=== PATIENT | female | born 1925 | race Caucasian/White ===

== ENCOUNTER 2016-07-21 12:18 | Emergency (ER) | payer BC, MEDICARE ==
[2016-07-21 12:43] VITALS: BP 131/67
[2016-07-21] MEDS ORDERED: Morphine 2 MG/ML Syringe IVPUSH ONE (13:50)
[2016-07-21] MEDS ORDERED: Morphine 2 MG/ML Syringe ONE ×4 (13:54→15:58)
--- NOTE | 2016-07-21 20:03 | CR ---
DATE OF SERVICE: 07/21/2016 CLINICAL DATA: Fall. PELVIS AND RIGHT HIP There is diffuse osteopenia. There is an impacted intertrochanteric fracture on the right. No other acute abnormalities. IMPRESSION: Right hip fracture. [id number] [facility]
--- NOTE | 2016-07-22 02:31 | ER ---
CHIEF COMPLAINT: The patient enters the emergency room by ambulance after she had a fall at home. HISTORY OF PRESENT ILLNESS: The patient states that her knees buckled while at home, she fell, she lied on the floor for approximately 3 hours before she was found by family members. She could not bear weight to get up. She states that she has pain of her right hip. She states that she is aware of everything from when she fell, that she did not have any loss of consciousness, that she has no complaints of headache or neck pain at this time. PAST MEDICAL HISTORY: Significant for 1. LVH. 2. Hypertension. 3. Rheumatoid arthritis. MEDICATIONS: Current medicines include lisinopril 20 mg p.o. daily, prednisone 5 mg p.o. daily, methotrexate 2.5 mg 8 tablets per week, and folic acid 1 mg p.o. daily. SOCIAL HISTORY: The patient does not use alcohol or smoke. REVIEW OF SYSTEMS: The patient denies any fever, weight loss, or fatigue. No vision complaints. No nose congestion, sore throat, or ear pain. No chest pain or palpitations. No coughing or wheezing. No nausea, vomiting, diarrhea, constipation, or heartburn. No dysuria. She does have pain in her right hip after falling. She denies any complaints of skin rashes. She denies any complaints of headache, dizziness, weakness, or numbness except for discomfort in her right leg. She denies any history of depression. PHYSICAL EXAMINATION: GENERAL: Reveals a frail elderly female. She is alert and oriented and in no acute distress. VITAL SIGNS: Temperature is 98.7, blood pressure is 131/67, and pulse is 97 and regular. HEENT: Eyes show conjunctivae to be normal. EOMI. ENT shows nose to be clear. Throat is clear. TMs normal. NECK: Supple. No masses. No thyromegaly. No bruits. LYMPHATIC: Negative for adenopathy. LUNGS: Clear. HEART: Shows regular rate and rhythm. No murmurs, rubs, or gallops. No S3, no S4. ABDOMEN: Soft, nontender. No mass. No organomegaly. BACK: Shows no CVA or cord tenderness. SKIN: Shows no open wounds. No bruising. NEUROLOGIC: Cranial nerves 2 through 12 are intact. No focal deficits other than problems moving her right hip. PSYCHIATRIC: Memory seems to be intact. Her mood is appropriate. Judgment is fair. MUSCULOSKELETAL: She does have joint deformities consistent with rheumatoid arthritis in her hands, but there are no acute inflamed joints at this time. ASSESSMENT: 1. Right hip fracture. 2. History of hypertension with LVH. 3. Rheumatoid arthritis. PLAN: X-ray was performed, shows a right hip fracture. The patient will be transferred to [facility] to Dr. Ceballos and Dr. Amador, orthopedist; he will make sure the patient is stable and to repair as indicated. EKG was performed, it does show normal sinus rhythm with LVH, there is some ST strains in II, III, and F which appear to be new as well as in V5 and V6. CK was done, it was normal at 82. Troponins were normal. CBC was with slightly elevated white count at 16.3, hemoglobin and hematocrit of 11 and 33, and platelet count of 410. A BMP was done. Sodium was normal, potassium of 3.3. The rest of her electrolytes were normal. Her creatinine was 0.66. Total protein was 8.3. Liver enzymes were all normal. Patient with right hip fracture, was transferred to [facility] by ambulance for surgical repair. ADELAIDA/FANY /[id number]
== END 2016-07-21 16:00 ==
LOC: LB.ED 12:18
DX: S72.141A Displaced intertrochanteric fracture of right femur, initial encounter for closed fracture (principal); I10 Essential (primary) hypertension; M06.9 Rheumatoid arthritis, unspecified; W19.XXXA Unspecified fall, initial encounter; Y92.009 Unspecified place in unspecified non-institutional (private) residence as the place of occurrence of the external cause
CPT/HCPCS: 36415; 73502; 80053; 82550; 84484; 85025; 93005; 96374; 99284; 99285; A0425; A0429; J2270

== ENCOUNTER 2016-07-25 13:53 | Inpatient (IN) | payer MEDICARE, BC ==
[2016-07-25] MEDS ORDERED: METHOTREXATE 2.5 MG PO SCH (14:30)
[2016-07-25] MEDS ORDERED: Tuberculin, PPD 5 Units/0.1 ML 1 ML MDV IDERM ONE (14:39)
[2016-07-25] MEDS: Acetaminophen 325 MG Tab PO SCH ×2 (18:38→20:00)
--- NOTE | 2016-07-25 21:48 | PCM.HP ---
H&P History of Present Illness - General Date of Service: 07/25/16 Admit Problem/Dx: Admission Diagnosis/Problem Admission Diagnosis/Problem Pain management Source of Information: Patient History Limitations: Reports: No limitations - History of Present Illness Initial Comments - Free Text/Narative: Pt is a 89 year old female who had a fall at home on 07/22/15 and she sustained comminuted intertrochanteric fracture of right hip and was transferred down to [facility] for definitive care. Pt was seen by Dr.Moriatrty wise underwent ORIF of right hip on 07/22/16. Pt did have some intraoperative blood loss and has had blood transfusion. Her last hemoglobin on 07/24/16 was 9gm. Pt has been doing well with OT and PT and tolerating oral diet well. Hence patient has been transferred to [facility] for swing bed admission for rehabilitation post hip surgery. Pt claims she fells fine other than some soreness of the right hip. No fever, or chills. No dysuria or cough. Right Hip Pain Score (Numeric/FACES): 7 - Related Data Allergies/Adverse Reactions: Allergies Allergy/AdvReac Type Severity Reaction Status Date / Time No Known Allergies Allergy Verified 07/25/16 18:42 Home Medications: Home Meds Lisinopril [Lisinopril] 20 mg PO DAILY 07/21/16 [History] Methotrexate Sodium [Methotrexate] 6 tab PO WEEKLY 07/21/16 [History] Acetaminophen [Tylenol] 650 mg PO Q6H PRN 07/25/16 [History] Aspirin 81 mg PO DAILY 07/25/16 [History] Docusate Sodium/Sennosides [Senna Plus] 1 each PO BID 07/25/16 [History] Folic Acid [Folic Acid] 1 mg PO DAILY 07/25/16 [History] Past Medical History HEENT History: Reports: Cataract Cardiovascular History: Reports: Heart Failure, Hypertension, IA Gastrointestinal History: Reports: Hemorrhoids Musculoskeletal History: Reports: Arthritis, Fracture, RA Hematologic History: Reports: Anemia Oncologic (Cancer) History: Reports: Other (see below) Other Oncologic History: Skin Ca on forehead removed 2011 Dermatologic History: Reports: Other (see below) Other Dermatologic History: Herpes Simplex disciform keratitis - Infectious Disease History Infectious Disease History: Reports: Chicken pox - Past Surgical History HEENT Surgical History: Reports: Cataract surgery Cardiovascular Surgical History: Reports: Coronary artery stent GI Surgical History: Reports: Colonoscopy Musculoskeletal Surgical History: Reports: Hip replacement, Other (see below) Other Musculoskeletal Surgeries/Procedures:: Right ORIF Social & Family History - Family History Family Medical History: Noncontributory H&P Review of Systems - Review of Systems: Review Of Systems: See Below General: Denies: fever, chills, fatigue, night sweats, diaphoresis HEENT: Denies: headaches, rhinitis, post nasal drip Pulmonary: Denies: Shortness of Breath, Cough, Sputum Cardiovascular: Denies: chest pain, lightheadedness Gastrointestinal: Denies: Abdominal pain, Diarrhea, Nausea, Vomiting Genitourinary: Denies: dysuria, frequency, burning Musculoskeletal: Denies: leg pain, foot pain, joint swelling Skin: Denies: pruritis, rash Psychiatric: Denies: confusion, depression Neurological: Denies: Confusion, Headache, Numbness, Syncope, Tingling, Weakness Exam - Exam Exam: See Below - Vital Signs Vital Signs: Last Vital Signs Temp 98.2 F 07/25/16 17:30 Pulse 93 07/25/16 17:30 Resp 20 07/25/16 17:30 BP 154/82 H 07/25/16 17:30 Pulse Ox 100 07/25/16 17:30 Weight: 47.627 kg - Exam General: alert, oriented, 4 HEENT: PERRLA, Hearing intact, Mucosa moist & pink, Nares patent, Normal nasal septum, Posterior pharynx clear, Conjunctiva clear, EOMI, EACs clear, TMs clear Neck: supple, trachea midline, 2 Lungs: Clear to auscultation, Normal respiratory effort Cardiovascular: regular rate, regular rhythm Abdomen: normal bowel sounds, soft Extremities: normal inspection, other (Right hip: ther are dressing over lateral aspect of the hip, wound appear clean and dry.) *Q Meaningful Use (ADM) - VTE *Q VTE Criteria *Q: - Stroke *Q Stroke Criteria *Q: - AMI *Q AMI Criteria *Q: - Problem List (1) Status post right hip replacement SNOMED Code(s): 766915951, 391847963, 456477513 ICD Code: Z96.641 - PRESENCE OF RIGHT ARTIFICIAL HIP JOINT Status: Acute Current Visit: Yes Problem List Initiated/Reviewed/Updated: Yes Orders Last 24hrs: Active Orders 24 hr Category Date Time Status Patient Status [ADT] Routine ADT 07/25/16 14:40 Active Dietary Supplements [RC] TIDMEALS Care 07/25/16 14:42 Active OT Evaluation and Treatment [CONS] Routine Cons 07/25/16 14:40 Active PT Evaluation and Treatment [CONS] Routine Cons 07/25/16 14:40 Active Heart Healthy Diet [DIET] Diet 07/26/16 Breakfast Ordered CULTURE MRSA SURVEY [RM] Routine Lab 07/25/16 18:47 Ordered Acetaminophen [Tylenol] Med 07/25/16 14:30 Active 650 mg PO Q6H Acetaminophen/HYDROcodone [[place] 325-5 MG] Med 07/25/16 14:23 Active 1 - 2 tab PO Q6H PRN Aspirin [Halfprin] Med 07/26/16 08:00 Active 81 mg PO DAILY Docusate Sodium/Sennosides [Senna Plus] Med 07/25/16 20:00 Active 1 tab PO BID Enoxaparin [Lovenox] Med 07/26/16 08:00 Active 40 mg SUBCUT DAILY Folic Acid Med 07/26/16 08:00 Active 1 mg PO DAILY Lisinopril [Prinivil] Med 07/26/16 08:00 Active 20 mg PO DAILY Non-Formulary Medication [NF Drug] Med 07/27/16 08:00 Hold 6 each PO Rader@0800 traMADol [Ultram] Med 07/25/16 14:24 Active 25 mg PO Q6H PRN Resuscitation Status Routine Resus Stat 07/25/16 14:39 Ordered Medication Orders Acetaminophen (Tylenol) 650 mg PO Q6H [facility] Last Admin: 07/25/16 20:00 Dose: 650 mg Admin: 07/25/16 18:38 Dose: Not Given Hydrocodone Bitart/Acetaminophen ([place] 325-5 Mg) 1 - 2 tab PO Q6H PRN PRN Reason: MODERATE PAIN Aspirin (Halfprin) 81 mg PO DAILY [facility] Enoxaparin Sodium (Lovenox) 40 mg SUBCUT DAILY ANG[facility] Stop: 08/20/16 18:00 Folic Acid (Folic Acid) 1 mg PO DAILY [facility] Lisinopril (Prinivil) 20 mg PO DAILY [facility] Methotrexate 2.5mg (Tablets) 6 each PO Rader@0800 [facility] Senna/Docusate Sodium (Senna Plus) 1 tab PO BID [facility] Last Admin: 07/25/16 20:03 Dose: 1 tab Tramadol HCl (Ultram) 25 mg PO Q6H PRN PRN Reason: SEVERE PAIN Assessment/Plan Comment:: Ass: S?P right hip ORIF Plan: pt is clinically stable. Will continue her discharge medication as per the discharge summary from [place]. Will start OT and PT evaluation on Thursday. Her clinical exam is normal. Will monitor her vitals closely. Will repeat CBC on thursday as her baseline hemoglobin is 9.
[2016-07-26] MEDS: Acetaminophen/HYDROcodone 325-5 MG Tab PO PRN ×2 (00:49→17:39)
[2016-07-26] MEDS: Acetaminophen 325 MG Tab PO SCH ×4 (02:30→20:14)
[2016-07-26] MEDS ORDERED: Lisinopril 10 MG Tab PO SCH (08:00)
[2016-07-26] MEDS ORDERED: METHOTREXATE SODIUM 2.5 MG PO SCH (08:00)
[2016-07-26] MEDS: Aspirin 81 MG Tab.EC PO SCH (08:44)
[2016-07-26] MEDS: Folic Acid 1 MG Tab PO SCH (08:45)
[2016-07-26] MEDS: Lisinopril 20 MG Tab PO SCH (08:45)
[2016-07-26] MEDS: Enoxaparin 40 MG/0.4 ML Syringe SUBCUT SCH (08:49)
[2016-07-27] MEDS: Acetaminophen 325 MG Tab PO SCH ×4 (01:53→20:44)
[2016-07-27] MEDS ORDERED: METHOTREXATE 2.5 MG PO SCH (08:00)
[2016-07-27] MEDS: traMADol 50 MG Tab PO PRN (08:19)
[2016-07-27] MEDS: Folic Acid 1 MG Tab PO SCH (08:21)
[2016-07-27] MEDS: Enoxaparin 40 MG/0.4 ML Syringe SUBCUT SCH (08:21)
[2016-07-27] MEDS: Aspirin 81 MG Tab.EC PO SCH (08:22)
[2016-07-27] MEDS: Lisinopril 20 MG Tab PO SCH (08:22)
[2016-07-27] MEDS: Acetaminophen/HYDROcodone 325-5 MG Tab PO PRN (17:34)
[2016-07-28] MEDS: Acetaminophen 325 MG Tab PO SCH ×4 (03:07→20:05)
[2016-07-28] MEDS: Lisinopril 20 MG Tab PO SCH (08:20)
[2016-07-28] MEDS: Folic Acid 1 MG Tab PO SCH (08:20)
[2016-07-28] MEDS: Aspirin 81 MG Tab.EC PO SCH (08:20)
[2016-07-28] MEDS: Enoxaparin 40 MG/0.4 ML Syringe SUBCUT SCH (08:21)
[2016-07-28] MEDS: traMADol 50 MG Tab PO PRN (14:48)
[2016-07-29] MEDS: Acetaminophen 325 MG Tab PO SCH ×3 (01:59→13:52)
[2016-07-29] MEDS: Enoxaparin 40 MG/0.4 ML Syringe SUBCUT SCH (07:47)
[2016-07-29] MEDS: Aspirin 81 MG Tab.EC PO SCH (07:48)
[2016-07-29] MEDS: Lisinopril 20 MG Tab PO SCH (07:48)
[2016-07-29] MEDS: Folic Acid 1 MG Tab PO SCH (07:48)
--- NOTE | 2016-07-29 10:11 | PN ---
DATE OF VISIT: 07/29/2016 SUBJECTIVE: The patient is here for recovery from a right intertrochanteric fracture repair, should be receiving PT and OT. She has had some anemia, and has had a transfusion. Hemoglobin has been stable at 8.8. She has had some hypokalemia and that will be followed up in the morning with the BMP, so far the patient has been doing well. Pain is controlled. She is eating well. No issues voiced. OBJECTIVE: VITAL SIGNS: Blood pressure today is 144/94. She is 100% saturated on room air. She is afebrile at 36.6, respirations 16, and pulse of 106. SKIN: Dry. There is no break down. There is a small quarter-size blanching area of redness on her sacrum. Wound seems to be clean and dry per the nursing staff. HEART: Shows a regular rate and rhythm. No murmurs, rubs, or gallops. No S3, no S4. LUNGS: Clear. ABDOMEN: Soft and nontender. No mass. No organomegaly. EXTREMITIES: Show no clubbing, cyanosis, or edema. ASSESSMENT: 1. Status post right intertrochanteric fracture. 2. Rheumatoid arthritis. 3. Hypertension. 4. Anemia. 5. Hypokalemia. PLAN: The patient will continue PT/OT while on swing bed. We will continue to monitor her hemoglobin and her electrolytes, and transfuse as necessary or correct electrolytes if necessary. ADELAIDA/FANY /[id number]
[2016-07-29] MEDS: traMADol 50 MG Tab PO PRN ×2 (10:18→16:19)
[2016-07-29] MEDS: Acetaminophen/HYDROcodone 325-5 MG Tab PO PRN ×2 (13:04→19:42)
[2016-07-30] MEDS: Acetaminophen 325 MG Tab PO SCH ×4 (01:29→14:00)
[2016-07-30] MEDS: Lisinopril 20 MG Tab PO SCH (08:05)
[2016-07-30] MEDS: Enoxaparin 40 MG/0.4 ML Syringe SUBCUT SCH (08:06)
[2016-07-30] MEDS: Folic Acid 1 MG Tab PO SCH (08:06)
[2016-07-30] MEDS: Aspirin 81 MG Tab.EC PO SCH (08:06)
[2016-07-30] MEDS: Acetaminophen/HYDROcodone 325-5 MG Tab PO PRN (13:55)
[2016-07-31] MEDS: Acetaminophen 325 MG Tab PO SCH ×4 (06:14→20:00)
[2016-07-31] MEDS: Folic Acid 1 MG Tab PO SCH (07:57)
[2016-07-31] MEDS: Aspirin 81 MG Tab.EC PO SCH (07:57)
[2016-07-31] MEDS: Lisinopril 20 MG Tab PO SCH (07:58)
[2016-07-31] MEDS: Enoxaparin 40 MG/0.4 ML Syringe SUBCUT SCH (07:59)
[2016-08-01] MEDS: Acetaminophen 325 MG Tab PO SCH ×4 (04:00→21:26)
[2016-08-01] MEDS: Aspirin 81 MG Tab.EC PO SCH (08:25)
[2016-08-01] MEDS: Folic Acid 1 MG Tab PO SCH (08:25)
[2016-08-01] MEDS: Lisinopril 20 MG Tab PO SCH (08:25)
[2016-08-01] MEDS: Enoxaparin 40 MG/0.4 ML Syringe SUBCUT SCH (08:28)
[2016-08-02] MEDS: Acetaminophen 325 MG Tab PO SCH ×4 (03:30→19:16)
[2016-08-02] MEDS: Folic Acid 1 MG Tab PO SCH (07:50)
[2016-08-02] MEDS: Enoxaparin 40 MG/0.4 ML Syringe SUBCUT SCH (07:50)
[2016-08-02] MEDS: Aspirin 81 MG Tab.EC PO SCH (07:50)
[2016-08-02] MEDS: Lisinopril 20 MG Tab PO SCH (07:50)
[2016-08-03] MEDS: Acetaminophen 325 MG Tab PO SCH ×4 (07:12→22:59)
[2016-08-03] MEDS: Folic Acid 1 MG Tab PO SCH (08:03)
[2016-08-03] MEDS: Aspirin 81 MG Tab.EC PO SCH (08:03)
[2016-08-03] MEDS: Enoxaparin 40 MG/0.4 ML Syringe SUBCUT SCH (08:04)
[2016-08-03] MEDS: Lisinopril 20 MG Tab PO SCH (08:04)
[2016-08-04] MEDS: Acetaminophen 325 MG Tab PO SCH ×4 (07:37→19:56)
[2016-08-04] MEDS: Folic Acid 1 MG Tab PO SCH (07:38)
[2016-08-04] MEDS: Aspirin 81 MG Tab.EC PO SCH (07:38)
[2016-08-04] MEDS: Enoxaparin 40 MG/0.4 ML Syringe SUBCUT SCH (07:39)
[2016-08-04] MEDS: Lisinopril 20 MG Tab PO SCH (07:39)
[2016-08-05] MEDS: Acetaminophen 325 MG Tab PO SCH ×4 (02:00→20:00)
[2016-08-05] MEDS: Aspirin 81 MG Tab.EC PO SCH (07:53)
[2016-08-05] MEDS: Folic Acid 1 MG Tab PO SCH (07:53)
[2016-08-05] MEDS: Lisinopril 20 MG Tab PO SCH (07:53)
[2016-08-05] MEDS: Enoxaparin 40 MG/0.4 ML Syringe SUBCUT SCH (07:53)
[2016-08-05] MEDS: Acetaminophen/HYDROcodone 325-5 MG Tab PO PRN (20:51)
[2016-08-06] MEDS: Acetaminophen 325 MG Tab PO SCH ×5 (02:07→20:32)
[2016-08-06] MEDS: Folic Acid 1 MG Tab PO SCH (08:12)
[2016-08-06] MEDS: Lisinopril 20 MG Tab PO SCH (08:12)
[2016-08-06] MEDS: Aspirin 81 MG Tab.EC PO SCH (08:12)
[2016-08-06] MEDS: Enoxaparin 40 MG/0.4 ML Syringe SUBCUT SCH (08:12)
[2016-08-07] MEDS: Acetaminophen/HYDROcodone 325-5 MG Tab PO PRN ×2 (02:34→08:15)
[2016-08-07] MEDS: Folic Acid 1 MG Tab PO SCH (08:10)
[2016-08-07] MEDS: Aspirin 81 MG Tab.EC PO SCH (08:11)
[2016-08-07] MEDS: Lisinopril 20 MG Tab PO SCH (08:11)
[2016-08-07] MEDS: Acetaminophen 325 MG Tab PO SCH ×4 (08:12→20:20)
[2016-08-07] MEDS: Enoxaparin 40 MG/0.4 ML Syringe SUBCUT SCH (08:12)
[2016-08-08] MEDS: Folic Acid 1 MG Tab PO SCH (07:39)
[2016-08-08] MEDS: Aspirin 81 MG Tab.EC PO SCH (07:39)
[2016-08-08] MEDS: Acetaminophen 325 MG Tab PO SCH ×3 (07:40→17:00)
[2016-08-08] MEDS: Lisinopril 20 MG Tab PO SCH (07:40)
[2016-08-08] MEDS: Enoxaparin 40 MG/0.4 ML Syringe SUBCUT SCH (07:42)
[2016-08-08] MEDS: Acetaminophen/HYDROcodone 325-5 MG Tab PO PRN (12:20)
--- NOTE | 2016-08-08 13:08 | PN ---
DATE OF VISIT: 08/07/2016 SUBJECTIVE: Zohra is here to rehab after hip surgery due to fracture. She is progressing quite well. She has no complaints. OBJECTIVE: VITAL SIGNS: Stable. Today her temperature is 35.7, blood pressure 163/70, pulse of 86, 100% saturated on room air. GENERAL: A well-developed, well-nourished female. She is alert, she is oriented x3. She is in no acute distress while sitting. SKIN: Warm and dry. HEART: Shows a regular rate and rhythm. No murmur, rubs, or gallops. No S3, no S4. LUNGS: Clear. ABDOMEN: Soft, nontender. No mass. No organomegaly. EXTREMITIES: Show no clubbing, cyanosis, or edema, however, she does have compression hose in place. PLAN: The patient will continue her rehab and from her hip fracture, continue to see the patient on a weekly basis. No change in therapy at this time. ADELAIDA/FANY /[id number]
[2016-08-09] MEDS: Acetaminophen 325 MG Tab PO SCH ×5 (01:40→19:46)
[2016-08-09] MEDS: Acetaminophen/HYDROcodone 325-5 MG Tab PO PRN ×2 (02:17→20:46)
[2016-08-09] MEDS: Aspirin 81 MG Tab.EC PO SCH (07:37)
[2016-08-09] MEDS: Lisinopril 20 MG Tab PO SCH (07:38)
[2016-08-09] MEDS: Folic Acid 1 MG Tab PO SCH (07:38)
[2016-08-09] MEDS: Enoxaparin 40 MG/0.4 ML Syringe SUBCUT SCH (07:39)
[2016-08-10] MEDS: Aspirin 81 MG Tab.EC PO SCH (07:54)
[2016-08-10] MEDS: Acetaminophen 325 MG Tab PO SCH ×4 (07:55→19:24)
[2016-08-10] MEDS: Lisinopril 20 MG Tab PO SCH (07:56)
[2016-08-10] MEDS: Folic Acid 1 MG Tab PO SCH (07:57)
[2016-08-10] MEDS: Enoxaparin 40 MG/0.4 ML Syringe SUBCUT SCH (07:57)
[2016-08-10] MEDS: Acetaminophen/HYDROcodone 325-5 MG Tab PO PRN (19:23)
[2016-08-11] MEDS: Acetaminophen 325 MG Tab PO SCH ×4 (07:48→21:22)
[2016-08-11] MEDS: Enoxaparin 40 MG/0.4 ML Syringe SUBCUT SCH (07:48)
[2016-08-11] MEDS: Folic Acid 1 MG Tab PO SCH (07:52)
[2016-08-11] MEDS: Aspirin 81 MG Tab.EC PO SCH (07:52)
[2016-08-11] MEDS: Lisinopril 20 MG Tab PO SCH (07:53)
[2016-08-11] MEDS: Acetaminophen/HYDROcodone 325-5 MG Tab PO PRN (21:26)
[2016-08-12] MEDS ORDERED: Tuberculin, PPD 5 Units/0.1 ML 1 ML MDV IDERM SCH (08:00)
[2016-08-12] MEDS: Folic Acid 1 MG Tab PO SCH (08:22)
[2016-08-12] MEDS: Acetaminophen 325 MG Tab PO SCH ×4 (08:22→20:20)
[2016-08-12] MEDS: Lisinopril 20 MG Tab PO SCH (08:23)
[2016-08-12] MEDS: Aspirin 81 MG Tab.EC PO SCH (08:23)
[2016-08-12] MEDS: Enoxaparin 40 MG/0.4 ML Syringe SUBCUT SCH (08:23)
[2016-08-13] MEDS: Folic Acid 1 MG Tab PO SCH (07:58)
[2016-08-13] MEDS: Acetaminophen 325 MG Tab PO SCH ×4 (07:58→20:37)
[2016-08-13] MEDS: Aspirin 81 MG Tab.EC PO SCH (07:59)
[2016-08-13] MEDS: Lisinopril 20 MG Tab PO SCH (07:59)
[2016-08-13] MEDS: Enoxaparin 40 MG/0.4 ML Syringe SUBCUT SCH (07:59)
[2016-08-14] MEDS: traMADol 50 MG Tab PO PRN ×2 (00:30→23:55)
[2016-08-14] MEDS: Enoxaparin 40 MG/0.4 ML Syringe SUBCUT SCH (08:00)
[2016-08-14] MEDS: Folic Acid 1 MG Tab PO SCH (08:03)
[2016-08-14] MEDS: Acetaminophen 325 MG Tab PO SCH ×4 (08:04→20:00)
[2016-08-14] MEDS: Aspirin 81 MG Tab.EC PO SCH (08:04)
[2016-08-14] MEDS: Lisinopril 20 MG Tab PO SCH (08:46)
[2016-08-15] MEDS: Acetaminophen 325 MG Tab PO SCH ×4 (07:37→20:37)
[2016-08-15] MEDS: Folic Acid 1 MG Tab PO SCH (07:39)
[2016-08-15] MEDS: Aspirin 81 MG Tab.EC PO SCH (07:39)
[2016-08-15] MEDS: Lisinopril 20 MG Tab PO SCH (07:40)
[2016-08-15] MEDS: Enoxaparin 40 MG/0.4 ML Syringe SUBCUT SCH (07:41)
[2016-08-15] MEDS: Acetaminophen/HYDROcodone 325-5 MG Tab PO PRN (12:05)
[2016-08-16] MEDS: Acetaminophen 325 MG Tab PO SCH ×4 (08:23→19:28)
[2016-08-16] MEDS: Aspirin 81 MG Tab.EC PO SCH (08:25)
[2016-08-16] MEDS: Folic Acid 1 MG Tab PO SCH (08:25)
[2016-08-16] MEDS: Lisinopril 20 MG Tab PO SCH (08:26)
[2016-08-16] MEDS: Enoxaparin 40 MG/0.4 ML Syringe SUBCUT SCH (08:35)
--- NOTE | 2016-08-16 18:35 | PCM.PN ---
- General Info Date of Service: 08/15/16 Subjective Update: Pt has been doing well. Has been able to weight bear and walk with minimal pain and discomfort. has been working with OT and PT. Feeding well. No compalints form patinet. No drainage or bleeding from the surgical site. Functional Status: Reports: pain controlled, tolerating diet, ambulating, urinating - Review of Systems General: Denies: Fever, Weakness, Fatigue HEENT: Denies: sinus congestion, sore throat Pulmonary: Denies: shortness of breath, hemoptysis, wheezing Cardiovascular: Denies: Chest Pain, Lightheadedness Gastrointestinal: Denies: Abdominal pain, Constipation, Nausea, Vomiting Genitourinary: Denies: frequency, burning Musculoskeletal: Denies: joint pain, joint swelling Skin: Denies: pruritis, rash Neurological: Denies: Confusion, Dizziness, Headache - Patient Data Vitals - most recent: Last Vital Signs Temp 98.7 F 08/16/16 08:00 Pulse 91 08/16/16 08:00 Resp 16 08/16/16 08:00 BP 121/68 08/16/16 08:26 Pulse Ox 100 08/16/16 08:00 Weight - most recent: 41.73 kg Med Orders - Current: Current Medications Acetaminophen (Tylenol) 650 mg PO QID [facility] Last Admin: 08/16/16 16:54 Dose: 650 mg Hydrocodone Bitart/Acetaminophen ([place] 325-5 Mg) 1 - 2 tab PO Q6H PRN PRN Reason: MODERATE PAIN Last Admin: 08/15/16 12:05 Dose: 1 tab Aspirin (Halfprin) 81 mg PO DAILY [facility] Last Admin: 08/16/16 08:25 Dose: 81 mg Enoxaparin Sodium (Lovenox) 40 mg SUBCUT DAILY [facility] Stop: 08/20/16 18:00 Last Admin: 08/16/16 08:35 Dose: 40 mg Folic Acid (Folic Acid) 1 mg PO DAILY [facility] Last Admin: 08/16/16 08:25 Dose: 1 mg Lisinopril (Prinivil) 20 mg PO DAILY [facility] Last Admin: 08/16/16 08:26 Dose: 20 mg Methotrexate 2.5mg (Tablets) 6 each PO Rader@0800 [facility] Senna/Docusate Sodium (Senna Plus) 1 tab PO BID [facility] Last Admin: 08/16/16 08:25 Dose: 1 tab Tramadol HCl (Ultram) 25 mg PO Q6H PRN PRN Reason: SEVERE PAIN Last Admin: 08/14/16 23:55 Dose: 25 mg Discontinued Medications Acetaminophen (Tylenol) 650 mg PO Q6H [facility] Last Admin: 07/26/16 08:46 Dose: 650 mg Acetaminophen (Tylenol) 650 mg PO 0200,0800,1400,2000 [facility] Last Admin: 08/06/16 08:14 Dose: 650 mg Methotrexate 2.5mg (Tablets) 6 each PO .WEEKLY [facility] Tuberculin PPD (Aplisol) 5 unit IDERM ONETIME ONE Stop: 07/25/16 14:40 Last Admin: 07/27/16 14:35 Dose: 5 unit Tuberculin PPD (Aplisol) 5 unit IDERM DAILY [facility] Stop: 08/12/16 18:00 Last Admin: 08/12/16 16:34 Dose: 5 unit - Exam General: alert, oriented HEENT: Pupils equal, Pupils reactive, EOMI, Mucous membr. moist/pink Neck: supple Lungs: Clear to auscultation Cardiovascular: Regular Rate, Regular Rhythm Abdomen: bowel sounds present, soft, no tenderness, no distension Extremities: normal pulses, no tenderness/swelling, other (the wound site over the right thigh has healed well ) - Problem List & Annotations (1) Status post right hip replacement SNOMED Code(s): 540920099, 169847664, [id number] Code(s): Z96.641 - PRESENCE OF RIGHT ARTIFICIAL HIP JOINT Status: Acute Current Visit: Yes - Problem List Review Problem List Initiated/Reviewed/Updated: Yes - Plan Plan:: Ass: S/P right hip ORIF Plan: the wound over right thigh has healed well. Pt is progressing well with therapy. When OT and PT clears patient will plan on discharge.
[2016-08-16] MEDS: traMADol 50 MG Tab PO PRN (19:35)
[2016-08-17] MEDS: Acetaminophen 325 MG Tab PO SCH ×3 (08:12→18:48)
[2016-08-17] MEDS: Folic Acid 1 MG Tab PO SCH (08:16)
[2016-08-17] MEDS: Aspirin 81 MG Tab.EC PO SCH (08:16)
[2016-08-17] MEDS: Enoxaparin 40 MG/0.4 ML Syringe SUBCUT SCH (08:17)
[2016-08-17] MEDS: Lisinopril 20 MG Tab PO SCH (08:19)
[2016-08-17] MEDS: traMADol 50 MG Tab PO PRN ×2 (08:27→19:35)
[2016-08-17] MEDS ORDERED: Acetaminophen 325 MG Tab PO ONE (12:00)
[2016-08-17] MEDS: Acetaminophen/HYDROcodone 325-5 MG Tab PO PRN ×2 (12:05→19:37)
[2016-08-18] MEDS: Lisinopril 20 MG Tab PO SCH (07:14)
[2016-08-18] MEDS: Aspirin 81 MG Tab.EC PO SCH (07:15)
[2016-08-18] MEDS: Acetaminophen 325 MG Tab PO SCH ×5 (07:16→22:34)
[2016-08-18] MEDS: Folic Acid 1 MG Tab PO SCH (07:17)
[2016-08-18] MEDS: Enoxaparin 40 MG/0.4 ML Syringe SUBCUT SCH (07:17)
[2016-08-18] MEDS: traMADol 50 MG Tab PO PRN (08:23)
[2016-08-18] MEDS ORDERED: Tuberculin, PPD 5 Units/0.1 ML 1 ML MDV IDERM ONE (14:04)
[2016-08-19] MEDS: traMADol 50 MG Tab PO PRN ×2 (00:03→18:31)
[2016-08-19] MEDS: Acetaminophen/HYDROcodone 325-5 MG Tab PO PRN (04:14)
[2016-08-19] MEDS: Acetaminophen 325 MG Tab PO SCH ×4 (07:50→23:35)
[2016-08-19] MEDS: Lisinopril 20 MG Tab PO SCH (07:51)
[2016-08-19] MEDS: Aspirin 81 MG Tab.EC PO SCH (07:51)
[2016-08-19] MEDS: Folic Acid 1 MG Tab PO SCH (07:51)
[2016-08-19] MEDS: Enoxaparin 40 MG/0.4 ML Syringe SUBCUT SCH (07:52)
[2016-08-20] MEDS: Acetaminophen 325 MG Tab PO SCH ×4 (07:30→19:31)
[2016-08-20] MEDS: Lisinopril 20 MG Tab PO SCH (07:31)
[2016-08-20] MEDS: Aspirin 81 MG Tab.EC PO SCH (07:31)
[2016-08-20] MEDS: Folic Acid 1 MG Tab PO SCH (07:31)
[2016-08-20] MEDS: Enoxaparin 40 MG/0.4 ML Syringe SUBCUT SCH ×2 (07:42→08:32)
[2016-08-20] MEDS ORDERED: Tuberculin, PPD 5 Units/0.1 ML 1 ML MDV IDERM ONE (18:17)
[2016-08-20] MEDS: Acetaminophen/HYDROcodone 325-5 MG Tab PO PRN (22:37)
[2016-08-21] MEDS: Acetaminophen 325 MG Tab PO SCH ×4 (07:38→19:04)
[2016-08-21] MEDS: Folic Acid 1 MG Tab PO SCH (07:38)
[2016-08-21] MEDS: Aspirin 81 MG Tab.EC PO SCH (07:38)
[2016-08-21] MEDS: Lisinopril 20 MG Tab PO SCH (07:42)
[2016-08-21] MEDS: traMADol 50 MG Tab PO PRN (19:03)
[2016-08-22] MEDS: traMADol 50 MG Tab PO PRN (06:32)
[2016-08-22] MEDS: Folic Acid 1 MG Tab PO SCH (07:30)
[2016-08-22] MEDS: Aspirin 81 MG Tab.EC PO SCH (07:30)
[2016-08-22] MEDS: Lisinopril 20 MG Tab PO SCH (07:31)
[2016-08-22] MEDS: Acetaminophen 325 MG Tab PO SCH ×4 (07:33→20:14)
[2016-08-23] MEDS: Folic Acid 1 MG Tab PO SCH (08:34)
[2016-08-23] MEDS: Aspirin 81 MG Tab.EC PO SCH (08:34)
[2016-08-23] MEDS: Lisinopril 20 MG Tab PO SCH (08:34)
[2016-08-23] MEDS: Acetaminophen 325 MG Tab PO SCH ×2 (08:35→14:15)
[2016-08-23] MEDS: traMADol 50 MG Tab PO PRN (10:02)
[2016-08-24] MEDS: Acetaminophen 325 MG Tab PO SCH ×6 (05:12→20:00)
[2016-08-24] MEDS: Folic Acid 1 MG Tab PO SCH (08:45)
[2016-08-24] MEDS: Aspirin 81 MG Tab.EC PO SCH (08:45)
[2016-08-24] MEDS: Lisinopril 20 MG Tab PO SCH (09:04)
[2016-08-24] MEDS: METHOTREXATE 2.5 MG PO SCH (13:45)
[2016-08-24] MEDS: traMADol 50 MG Tab PO PRN (19:32)
[2016-08-25] MEDS: Aspirin 81 MG Tab.EC PO SCH (09:05)
[2016-08-25] MEDS: Folic Acid 1 MG Tab PO SCH (09:05)
[2016-08-25] MEDS: Lisinopril 20 MG Tab PO SCH (09:05)
[2016-08-25] MEDS: traMADol 50 MG Tab PO PRN ×2 (09:06→19:38)
[2016-08-25] MEDS: Acetaminophen 325 MG Tab PO SCH ×3 (09:06→19:39)
[2016-08-26] MEDS: Acetaminophen 325 MG Tab PO SCH ×5 (08:45→19:51)
[2016-08-26] MEDS: Folic Acid 1 MG Tab PO SCH (08:46)
[2016-08-26] MEDS: Aspirin 81 MG Tab.EC PO SCH (08:46)
[2016-08-26] MEDS: traMADol 50 MG Tab PO PRN (09:29)
--- NOTE | 2016-08-26 10:19 | PCM.PN ---
- General Info Date of Service: 08/26/16 Subjective Update: Patient has been doing well. Patient states she has been a little nauseated from eating too much breakfast. Denies any pain but states she does have discomfort from sitting a lot - she is on a gel seat and checked yesterday for decubitus ulceration or irritation - there was none. Patient feels she is doing well otherwise and does not have any other complaints. - Review of Systems General: Reports: Weakness HEENT: Reports: no symptoms Pulmonary: Reports: no symptoms Cardiovascular: Reports: No Symptoms Gastrointestinal: Reports: Nausea Genitourinary: Reports: no symptoms Musculoskeletal: Reports: joint pain Skin: Reports: no symptoms Neurological: Reports: Weakness Psychiatric: Reports: no symptoms - Patient Data Vitals - most recent: Last Vital Signs Temp 36.2 C 08/26/16 10:00 Pulse 84 08/26/16 10:00 Resp 16 08/26/16 10:00 BP 105/58 L 08/26/16 10:00 Pulse Ox 100 08/26/16 10:00 Weight - most recent: 41.005 kg Lab Results last 24 hrs: Laboratory Results - last 24 hr 08/26/16 Range/Units 08:30 Sodium 134 L (136-145) mmol/L Potassium 4.5 (3.5-5.1) mmol/L Chloride 102 (98-107) mmol/L Carbon Dioxide 22.1 (21.0-32.0) mmol/L Anion Gap 14.4 (5.0-15.0) mmol/L BUN 32 H D (8-26) mg/dL Creatinine 0.78 (0.55-1.02) mg/dL Est Cr Clr Drug Dosing 31.65 mL/min Estimated GFR (MDRD) > 60 (>60) MLS/MIN BUN/Creatinine Ratio 41.0 H (6-25) Glucose 110 H (74-100) mg/dL Calcium 9.2 (8.5-10.1) mg/dL Med Orders - Current: Current Medications Acetaminophen (Tylenol) 650 mg PO QID [facility] Last Admin: 08/26/16 08:45 Dose: 325 mg Hydrocodone Bitart/Acetaminophen ([place] 325-5 Mg) 1 - 2 tab PO Q6H PRN PRN Reason: MODERATE PAIN Last Admin: 08/20/16 22:37 Dose: 2 tab Aspirin (Halfprin) 81 mg PO DAILY [facility] Last Admin: 08/26/16 08:46 Dose: 81 mg Folic Acid (Folic Acid) 1 mg PO DAILY [facility] Last Admin: 08/26/16 08:46 Dose: 1 mg Methotrexate 2.5mg (Tablets) 6 each PO Rader@0800 [facility] Last Admin: 08/24/16 13:45 Dose: 6 each Senna/Docusate Sodium (Senna Plus) 1 tab PO BID [facility] Last Admin: 08/26/16 08:51 Dose: Not Given Tramadol HCl (Ultram) 50 mg PO Q6H PRN PRN Reason: SEVERE PAIN Last Admin: 08/26/16 09:29 Dose: 50 mg Discontinued Medications Acetaminophen (Tylenol) 650 mg PO Q6H [facility] Last Admin: 07/26/16 08:46 Dose: 650 mg Acetaminophen (Tylenol) 650 mg PO 0200,0800,1400,2000 [facility] Last Admin: 08/06/16 08:14 Dose: 650 mg Acetaminophen (Tylenol) 325 mg PO NOW ONE Stop: 08/17/16 12:01 Last Admin: 08/17/16 12:10 Dose: 325 mg Enoxaparin Sodium (Lovenox) 40 mg SUBCUT DAILY [facility] Stop: 08/20/16 18:00 Last Admin: 08/20/16 08:32 Dose: 40 mg Lisinopril (Prinivil) 20 mg PO DAILY [facility] Last Admin: 08/25/16 09:05 Dose: 20 mg Methotrexate 2.5mg (Tablets) 6 each PO .WEEKLY [facility] Methotrexate 2.5mg (Tablets) 6 each PO Rader@0800 [facility] Tramadol HCl (Ultram) 25 mg PO Q6H PRN PRN Reason: SEVERE PAIN Last Admin: 08/19/16 18:31 Dose: 25 mg Tuberculin PPD (Aplisol) 5 unit IDERM ONETIME ONE Stop: 07/25/16 14:40 Last Admin: 07/27/16 14:35 Dose: 5 unit Tuberculin PPD (Aplisol) 5 unit IDERM DAILY [facility] Stop: 08/12/16 18:00 Last Admin: 08/12/16 16:34 Dose: 5 unit Tuberculin PPD (Aplisol) 5 unit IDERM ONETIME ONE Stop: 08/18/16 14:05 Last Admin: 08/19/16 10:36 Dose: Not Given Tuberculin PPD (Aplisol) 5 unit IDERM ONETIME ONE Stop: 08/20/16 18:18 Last Admin: 08/21/16 12:51 Dose: 5 unit - Exam General: alert, cooperative HEENT: Pupils equal, Pupils reactive, EOMI Neck: supple Lungs: Clear to auscultation, Normal respiratory effort Cardiovascular: Regular Rate, Regular Rhythm Abdomen: bowel sounds present, soft, no tenderness Back Exam: Normal Inspection Extremities: no edema Peripheral Pulses: 2+: Dorsalis Pedis (L), Dorsalis Pedis (R) Skin: warm, dry, intact Neurological: no new focal deficit Psy/Mental Status: alert, normal affect, normal mood - Problem List Review Problem List Initiated/Reviewed/Updated: Yes - Plan Plan:: Ass: S/P right hip ORIF Plan: the wound over right thigh has healed well. Pt is progressing well with therapy. When OT and PT clears patient will plan on discharge. 08/26/16 Patient continues to improve and do well. We will continue PT/OT until clearance. Discussed close monitoring of buttocks as patient did complain of soreness the past few days. Buttocks checked yesterday and no redness or sores. Patient has some complaints of nausea today - we will monitor and workup as needed.
[2016-08-26] MEDS: Lisinopril 20 MG Tab PO SCH (10:48)
[2016-08-27] MEDS: traMADol 50 MG Tab PO PRN ×2 (06:31→16:45)
[2016-08-27] MEDS: Folic Acid 1 MG Tab PO SCH (08:14)
[2016-08-27] MEDS: Aspirin 81 MG Tab.EC PO SCH (08:14)
[2016-08-27] MEDS: Acetaminophen 325 MG Tab PO SCH ×4 (08:15→19:30)
[2016-08-28] MEDS: traMADol 50 MG Tab PO PRN ×2 (04:37→19:48)
[2016-08-28] MEDS: Aspirin 81 MG Tab.EC PO SCH (08:17)
[2016-08-28] MEDS: Acetaminophen 325 MG Tab PO SCH ×4 (08:17→20:10)
[2016-08-28] MEDS: Folic Acid 1 MG Tab PO SCH (08:17)
[2016-08-28] MEDS ORDERED: Acetaminophen 325 MG Tab PO PRN (23:51)
[2016-08-29] MEDS: traMADol 50 MG Tab PO PRN ×2 (04:33→10:28)
[2016-08-29] MEDS: Aspirin 81 MG Tab.EC PO SCH (07:14)
[2016-08-29] MEDS: Folic Acid 1 MG Tab PO SCH (07:14)
[2016-08-29] MEDS: Acetaminophen/HYDROcodone 325-5 MG Tab PO PRN ×3 (07:22→22:33)
[2016-08-30] MEDS: Acetaminophen/HYDROcodone 325-5 MG Tab PO PRN ×4 (05:39→19:49)
[2016-08-30] MEDS: Aspirin 81 MG Tab.EC PO SCH (07:32)
[2016-08-30] MEDS: Folic Acid 1 MG Tab PO SCH (07:32)
[2016-08-31] MEDS: Acetaminophen/HYDROcodone 325-5 MG Tab PO PRN ×3 (02:14→23:24)
[2016-08-31] MEDS: Folic Acid 1 MG Tab PO SCH (07:44)
[2016-08-31] MEDS: Aspirin 81 MG Tab.EC PO SCH (07:44)
[2016-08-31] MEDS: METHOTREXATE 2.5 MG PO SCH (07:49)
[2016-08-31] MEDS ORDERED: Bisacodyl 10 MG Supp RECTAL ONE (11:07)
[2016-08-31] MEDS: traMADol 50 MG Tab PO PRN (14:24)
[2016-09-01] MEDS: Folic Acid 1 MG Tab PO SCH (07:45)
[2016-09-01] MEDS: Aspirin 81 MG Tab.EC PO SCH (07:45)
[2016-09-01] MEDS: traMADol 50 MG Tab PO PRN ×2 (07:50→19:04)
[2016-09-02] MEDS: Folic Acid 1 MG Tab PO SCH (08:15)
[2016-09-02] MEDS: Aspirin 81 MG Tab.EC PO SCH (08:15)
[2016-09-02] MEDS: traMADol 50 MG Tab PO PRN (08:15)
[2016-09-02 08:30] VITALS: BP 147/61
--- NOTE | 2016-09-02 11:08 | PCM.DCSUM1 ---
Discharge Summary - Hospital Course Free Text/Narrative:: Pt was admitted post ORIF of the right hip Done by Dr. Gibson on 08/21/16 for OT and PT rehabilitation. PT has attained maximum level of functioning at this point. Able to walk with walker with stable balance. Pt and her family have decided to place her in Care center. Hence patient has been transferred to [facility] today. Pt has not pain in the hip. Wound over the rigth lateral hip has healed well. Tolerating diet well. Will be transferred on her routine home meds. Brief History: Pt is a pleasant 89 year female who sustained right hip intertrochanteric fracture on 07/21/16 and had ORIF done by Dr. Gibson at [facility]. She was transferred to [facility] for Rehab at [facility] [place] [facility] care. - Discharge Data Discharge Date: 09/02/16 Discharge Disposition: DC/Tfer to [facility] Condition: Good - Discharge Diagnosis/Problem(s) (1) Status post right hip replacement SNOMED Code(s): 748270533, 378422607, [id number] ICD Code: Z96.641 - PRESENCE OF RIGHT ARTIFICIAL HIP JOINT Status: Acute Current Visit: Yes - Patient Summary/Data Consults: Consultations 07/25/16 14:40 OT Evaluation and Treatment [CONS] Routine Please Evaluate and Treat. OT Reason for Consult: ADL's This query below is only for informational purposes and is not editable. Admission Diagnosis/Problem: Pain management PT Evaluation and Treatment [CONS] Routine Please Evaluate and Treat. PT Reason for Consult: Strengthening This query below is only for informational purposes and is not editable. Admission Diagnosis/Problem: Pain management - Patient Instructions Diet: Regular Diet as Tolerated Activity: As Tolerated Showering/Bathing: May Shower - Discharge Plan Home Medications: Home Meds Lisinopril 20 mg PO DAILY 07/21/16 [History] Methotrexate Sodium [Methotrexate] 6 tab PO WEEKLY 07/21/16 [History] Acetaminophen [Tylenol] 650 mg PO Q6H PRN 07/25/16 [History] Aspirin 81 mg PO DAILY 07/25/16 [History] Docusate Sodium/Sennosides [Senna Plus] 1 each PO BID 07/25/16 [History] Folic Acid 1 mg PO DAILY 07/25/16 [History] Aspirin [Halfprin] 81 mg PO DAILY tab.ec 09/02/16 [Rx] Folic Acid 1 mg PO DAILY tablet 09/02/16 [Rx] traMADol [Ultram] 50 mg PO BID PRN #60 tablet 09/02/16 [Rx] - Discharge Summary/Plan Comment DC Time >30 min.: Yes Discharge Summary/Plan Comment: Pt transferred to [facility] today. - General Info Date of Service: 09/02/16 Functional Status: Reports: pain controlled, tolerating diet, ambulating, urinating - Review of Systems General: Denies: Fever, Weakness, Fatigue, Malaise HEENT: Denies: headaches, visual changes Pulmonary: Denies: shortness of breath, cough, sputum Cardiovascular: Denies: Chest Pain, Lightheadedness Gastrointestinal: Denies: Abdominal pain, Nausea, Vomiting Genitourinary: Denies: dysuria, frequency Musculoskeletal: Denies: joint pain, joint swelling Neurological: Denies: Confusion, Dizziness, Headache Psychiatric: Denies: confusion, depression - Patient Data Vitals - Most Recent: Last Vital Signs Temp 97.3 F 09/02/16 08:20 Pulse 86 09/02/16 08:20 Resp 18 09/02/16 08:20 BP 147/61 H 09/02/16 08:20 Pulse Ox 99 09/02/16 08:20 Weight - Most Recent: 40.823 kg Med Orders - Current: Current Medications Acetaminophen (Tylenol) 650 mg PO QID PRN PRN Reason: Pain Last Admin: 08/29/16 12:51 Dose: 650 mg Hydrocodone Bitart/Acetaminophen ([place] 325-5 Mg) 1 - 2 tab PO Q6H PRN PRN Reason: MODERATE PAIN Last Admin: 08/31/16 23:24 Dose: 2 tab Aspirin (Halfprin) 81 mg PO DAILY [facility] Last Admin: 09/02/16 08:15 Dose: 81 mg Folic Acid (Folic Acid) 1 mg PO DAILY [facility] Last Admin: 09/02/16 08:15 Dose: 1 mg Methotrexate 2.5mg (Tablets) 6 each PO Rader@0800 [facility] Last Admin: 08/31/16 07:49 Dose: 6 each Senna/Docusate Sodium (Senna Plus) 1 tab PO BID [facility] Last Admin: 09/02/16 08:15 Dose: 1 tab Tramadol HCl (Ultram) 50 mg PO Q6H PRN PRN Reason: SEVERE PAIN Last Admin: 09/02/16 08:15 Dose: 50 mg Discontinued Medications Acetaminophen (Tylenol) 650 mg PO Q6H [facility] Last Admin: 07/26/16 08:46 Dose: 650 mg Acetaminophen (Tylenol) 650 mg PO 0200,0800,1400,2000 [facility] Last Admin: 08/06/16 08:14 Dose: 650 mg Acetaminophen (Tylenol) 650 mg PO QID [facility] Last Admin: 08/28/16 20:10 Dose: Not Given Acetaminophen (Tylenol) 325 mg PO NOW ONE Stop: 08/17/16 12:01 Last Admin: 08/17/16 12:10 Dose: 325 mg Bisacodyl (Dulcolax) 10 mg RECTAL ONETIME ONE Stop: 08/31/16 11:08 Last Admin: 08/31/16 11:26 Dose: 10 mg Enoxaparin Sodium (Lovenox) 40 mg SUBCUT DAILY [facility] Stop: 08/20/16 18:00 Last Admin: 08/20/16 08:32 Dose: 40 mg Lisinopril (Prinivil) 20 mg PO DAILY [facility] Last Admin: 08/26/16 10:48 Dose: Not Given Methotrexate 2.5mg (Tablets) 6 each PO .WEEKLY [facility] Methotrexate 2.5mg (Tablets) 6 each PO Rader@0800 [facility] Tramadol HCl (Ultram) 25 mg PO Q6H PRN PRN Reason: SEVERE PAIN Last Admin: 08/19/16 18:31 Dose: 25 mg Tuberculin PPD (Aplisol) 5 unit IDERM ONETIME ONE Stop: 07/25/16 14:40 Last Admin: 07/27/16 14:35 Dose: 5 unit Tuberculin PPD (Aplisol) 5 unit IDERM DAILY [facility] Stop: 08/12/16 18:00 Last Admin: 08/12/16 16:34 Dose: 5 unit Tuberculin PPD (Aplisol) 5 unit IDERM ONETIME ONE Stop: 08/18/16 14:05 Last Admin: 08/19/16 10:36 Dose: Not Given Tuberculin PPD (Aplisol) 5 unit IDERM ONETIME ONE Stop: 08/20/16 18:18 Last Admin: 08/21/16 12:51 Dose: 5 unit - Exam General: Reports: alert, oriented HEENT: Reports: Pupils equal, Pupils reactive, EOMI, Mucous membr. moist/pink Neck: Reports: supple Lungs: Reports: Clear to auscultation, Normal respiratory effort Cardiovascular: Reports: Regular Rate, Regular Rhythm Abdomen: Reports: bowel sounds present, soft, no tenderness, no distension Back Exam: Reports: Normal Inspection, Full Range of Motion Extremities: Reports: no edema, normal pulses, other (well healed scar over right hip.) Skin: Reports: warm, intact Wound/Incisions: Reports: healing well Neurological: Reports: no new focal deficit Psy/Mental Status: Reports: alert, normal affect, normal mood *Q Meaningful Use (DIS) - VTE *Q VTE Criteria *Q: - Stroke *Q Stroke Criteria *Q: - AMI *Q AMI Criteria *Q:
== END 2016-09-02 11:20 | DRG 561 ==
LOC: UNDOADMIN 13:53 → LB.MS 13:53 → UNDOADMIN 17:23
PROVIDERS: ADMIT Family Medicine; ATTEND Internal Medicine
DX: S72.141D Displaced intertrochanteric fracture of right femur, subsequent encounter for closed fracture with routine healing (principal); W19.XXXD Unspecified fall, subsequent encounter; Z98.890 Other specified postprocedural states; I10 Essential (primary) hypertension; I25.2 Old myocardial infarction; M06.9 Rheumatoid arthritis, unspecified; Z85.828 Personal history of other malignant neoplasm of skin; D64.9 Anemia, unspecified; Z66 Do not resuscitate; Z96.641 Presence of right artificial hip joint; Z79.82 Long term (current) use of aspirin; Z96.649 Presence of unspecified artificial hip joint; Z11.1 Encounter for screening for respiratory tuberculosis
CPT/HCPCS: 36415; 80048; 80053; 85025; 86580; 97110-GO; 97110-GP; 97116-GP; 97161-GP; 97165-GO; 97530-GO; 97535-GO; A9270-GY; J1650